=== PATIENT | female | born 1945 | race Caucasian/White ===

== ENCOUNTER 2022-01-07 13:15 | Emergency (ER) | payer OTHER ==
[~2022-01-07 13:15] MED LIST: Iopamidol 370 76% 100 ML VIAL ONE
[2022-01-07 14:08] LABS: #Eosinphils 0.1 10x3/uL (0.0-0.5); #Monocytes 0.5 10x3/uL (0.0-1.1); #Neutrophils 3.9 10x3/uL (1.5-8.4); %Basophils 0.6 % (0.0-2.0); %Eosinophils 1.4 % (0.0-6.0); %Lymphocytes 29.8 % (18.0-47.0); %Monocytes 7.5 % (0.0-10.0); %Neutrophils 60.4 % (40.0-75.0); Hemoglobin 13.7 g/dL (12.0-15.5); Mean Corpuscular HGB CONC 33.3 g/dL (32.0-36.0); Mean Corpuscular Hemoglobin 29.3 pg (27.0-33.0); Mean Platelet Volume 9.9 fl (7.4-10.4); Platelet Count 208 10x3/uL (150-450); RBC Distribution Width 12.1 % (11.5-14.5); Red Blood Cell (RBC) Count 4.67 10x6/uL (3.90-5.03); White Blood Cell (WBC) Count 6.5 10x3/uL (3.5-10.5)
[2022-01-07 14:22] LABS: ALT (SGPT) 6 U/L (8-55); AST (SGOT) 15 U/L (5-34); Albumin 3.3 g/dL (3.4-4.8); Alkaline Phosphatase 46 U/L (40-110); Anion Gap 12 mmol/L (10-20); BUN (Urea Nitrogen) 19 mg/dL (9.8-20.1); Bilirubin, Total 0.9 mg/dL (0.2-1.2); Calc. Creatinine Clearance 0 mL/min (70-130); Carbon Dioxide 31 mmol/L (23-31); Chloride 101 mmol/L (98-107); Estimated GFR 56; Globulin 2.7 g/dL (2.4-3.5); Glucose 287 mg/dL (83-110); Potassium 3.8 mmol/L (3.5-5.1); Sodium 140 mmol/L (136-145)
[2022-01-07 15:06] LABS: Bilirubin Neg (Negative); Blood, Urine Negative (Negative); Clarity Clear (Clear); Glucose, Urine (Dipstick) >=1000 mg/dL (Negative); Ketone, Urine Negative (Negative); Leukocyte Negative (Negative); Nitrite Negative (Negative); Protein, Urine (Dipstick) 15 mg/dl (Neg-Trace); Urobilinogen Normal mg/dL (Less than 2)
[2022-01-07] MEDS ORDERED: Ketorolac Tromethamine 30 MG/ML VIAL ONE (15:28)
[2022-01-07 16:14] LABS: CKMB 1.2 ng/mL (0-6.6)
[2022-01-07 19:06] LABS: SARS-CoV-2 NAA Rapid Test Not Detected (NotDetected)
[2022-01-07] MEDS ORDERED: diphenhydrAMINE 50 MG/ML VIAL ONE (19:44)
[2022-01-07] MEDS ORDERED: Famotidine/PF 20 mg/2ml Vial ONE (19:45)
[2022-01-07] MEDS ORDERED: Furosemide 40 MG/4 ML VIAL ONE (19:45)
[2022-01-07] MEDS ORDERED: methylPREDNISolone Sod Succ 40 MG VIAL ONE (19:45)
[2022-01-07] MEDS ORDERED: Morphine 2 MG/ML VIAL ONE (20:11)
[2022-01-07 20:50] LABS: Troponin I 0.044 ng/mL (< 0.028)
== END 2022-01-07 21:37 | disposition short-term general hospital (02) ==
LOC: CSHERS 13:15
DX: I11.0 Hypertensive heart disease with heart failure (principal); I50.9 Heart failure, unspecified; R79.89 Other specified abnormal findings of blood chemistry; I25.10 Atherosclerotic heart disease of native coronary artery without angina pectoris; E11.9 Type 2 diabetes mellitus without complications; E78.5 Hyperlipidemia, unspecified; Z20.822 Contact with and (suspected) exposure to COVID-19
CPT/HCPCS: 71045; 71275; 80053; 81003; 82553; 83690; 83880; 84484 ×2; 85025; 87086; 93005; J2270; U0002; 36415; 96372; 96374; 96375; J1200; J1885; J1940; J2920; Q9967; S0028